=== PATIENT | female | born 2005 | race Two or more races ===

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

== ENCOUNTER 2025-05-07 10:32 | Emergency (ER) | payer MEDICAID, SELFPAY ==
[2025-05-07 10:33] VITALS: BMI 21.9
[2025-05-07 10:53] VITALS: BP 118/79; PULSE 80; RESP 17; TEMP 36.8; O2SAT 98; BMI 19.6
--- NOTE | 2025-05-07 11:18 | PD.EDRME ---
Rapid Medical Screening Exam E Arrival date/time: 05/07/25 10:32 This is a 20-year-old female that comes into the emergency room with complaints of pelvic pain. Patient denies vaginal bleeding. Patient states that she is approximately 8 weeks . Patient reports that her ex-boyfriend recently told her that he tested positive for chlamydia. Patient wants to be treated for this. Patient has not seen CHIEF BUSINESS DEVELOPMENT OFFICER. I have greeted and performed a focused initial assessment of this patient. Initial appropriate labs ordered at this time. A comprehensive ED assessment and evaluation of the patient and analysis of all test and completion of medical decision making process will be conducted by additional ED provider. Chief Complaint: Hip Injury/Pain Time Seen by Provider: 05/07/25 10:34 Vital signs: Vital Signs Temperature 98.3 F 05/07/25 10:53 Pulse Rate 80 05/07/25 10:53 Respiratory Rate 17 05/07/25 10:53 Blood Pressure 118/79 05/07/25 10:53 Pulse Oximetry (%) 98 05/07/25 10:53 Oxygen Delivery Method Room Air 05/07/25 10:53
--- NOTE | 2025-05-07 11:19 | XR_ITS ---
Examination: OB Transvaginal ultrasound of the pelvis, complete Technique: Transvaginal sonographic images pelvis performed using valdes scale imaging Exam date and time: May 07, 2025, 1138 hrs. Indications: History given pelvic pain today Findings: Uterus 8.8 cm, CRL 1.9 cm corresponds to 8 weeks 3 days gestational age Cardiac motion 171 BPM. Right ovary 2.4 cm arterial flow Left ovary 2.5 cm arterial flow Minimal fluid in the left adnexal region Impression: Viable intrauterine gestation 8 weeks 3 days.
[2025-05-07 12:02] LABS: Collection Type, Urine Voided
[2025-05-07 12:04] LABS: Basophils # (Auto) 0.1 Thou/mm3 (0.0-0.2); Basophils % (Auto) 1 % (0-2.5); Eosinophils # (Auto) 0.0 Thou/mm3 (0.0-0.5); Eosinophils % (Auto) 0 % (0-10); Hematocrit 40.1 % (36.0-46.0); Hemoglobin 13.9 g/dL (12.0-16.0); Immature Granulocytes Auto 0.03 Thou/mm3 (0.00-0.00); Lymphocytes # (Auto) 1.3 Thou/mm3 (1.0-4.8); Lymphocytes % (Auto) 13 % (10-50); Mean Corpuscular HGB Conc 34.7 g/dl (31.0-37.0); Mean Corpuscular Hemoglobin 28.5 pg (25.0-35.0); Mean Corpuscular Volume 82 fL (80-100); Monocytes # (Auto) 0.4 Thou/mm3 (0.0-0.8); Monocytes % (Auto) 4 % (0-12); Neutrophils # (Auto) 7.9 Thou/mm3 (1.8-7.7); Neutrophils % (Auto) 81 % (37-80); Nucleated Red Blood Cell # 0.00 Thou/mm3 (0.00-0.00); Nucleated Red Blood Cell % 0 /100 WBC (0); Platelet Count 285 Thou/mm3 (140-440); RDW Standard Deviation 38.5 fL (36.4-46.3); Red Blood Count 4.87 Miln/mm3 (4.00-5.20); White Blood Count 9.7 Thou/mm3 (4.5-11.0)
[2025-05-07 12:35] LABS: Amorphous Crystals,Urine Present (Absent); Bilirubin,Urine Negative (Negative); Blood,Urine Negative (Negative); Color,Urine Lt-Yellow (Lt Yel-Yel); Culture Indicated,Urine Not Indicated; Glucose, Urine Negative (Negative); Ketones,Urine Negative (Negative); Leukocyte Esterase,Urine Negative (Negative); Nitrite,Urine Negative (Negative); PH,Urine 8.0 (5.0-7.0); Protein,Urine Negative (Neg - Trace); RBC,Urine 1 /hpf (0-3); Specific Gravity,Urine 1.014 (1.001-1.035); Squamous Epithelial Cell,Urine 4 /hpf (0-5); Urobilinogen,Urine Negative mg/dL (0.0-1.0); WBC,Urine 1 /hpf (0-5)
[2025-05-07 12:37] LABS: Clarity,Urine Hazy (Clear/Hazy)
[2025-05-07 12:37] LABS: Alanine Aminotransferase 16 U/L (10-49); Albumin, Serum 5.1 gm/dL (3.5-5.0); Albumin/Globulin Ratio 1.8 (1.2-2.2); Alkaline Phosphatase 64 U/L (46-116); Anion Gap 13 (7-16); Aspartate Amino Transferase 19 U/L (0-34); BUN/Creatinine Ratio 7 Ratio (12-20); Beta HCG,Quantitative 153256 mIU/mL (<5.0); Bilirubin,Total 0.4 mg/dL (0.3-1.2); Blood Urea Nitrogen < 5 mg/dL (9-23); Calcium 10.1 mg/dL (8.3-10.6); Calcium (Corrected) 10.1 mg/dL (8.5-10.1); Carbon Dioxide 22.4 mMol/L (20.0-31.0); Chloride 107 mMol/L (98-107); Creatinine (Component) 0.7 mg/dL (0.6-1.3); Estimated Creatinine Clearance 115.0 mL/min (>60); Globulin 2.9 gm/dL (2.3-3.5); Glucose 90 mg/dL (74-106); Osmolality,Calculated 280 (275-295); Potassium 4.3 mMol/L (3.4-5.1); Sodium 142 mMol/L (136-145); Total Protein 8.0 gm/dL (5.7-8.2); eGFR > 60 See Note
--- NOTE | 2025-05-07 14:39 | EDNOTE_ITS ---
ED Female Urogenital RME/HPI General Chief complaint: Hip Injury/Pain Stated complaint: BILAT. PELVIC PAIN X1 DAY Time Seen by Provider: 05/07/25 10:34 Arrival date/time: 05/07/25 10:32 RME / HPI RME / HPI Narrative: 20-year-old female that comes into the emergency room with complaints of pelvic pain. Patient denies vaginal bleeding. Patient states that she is approximately 8 weeks . Patient reports that her ex-boyfriend recently 2 weeks ago told her that he tested positive for chlamydia. Patient wants to be treated for this. Patient has not seen FULFILLMENT ASSOCIATE. Patient broke up with her ex- boyfriend last March. Denies any dysuria denies any bleeding Related Data Allergies Allergy/AdvReac Type Severity Reaction Status Date / Time No Known Allergies Allergy Verified 05/07/25 10:36 Review of Systems Review of Systems Narrative Review of Systems: Review of system reviewed and within normal limits except mentioned in HPI ED Exam Narrative Physical exam: VITAL SIGNS: Reviewed. GENERAL APPEARANCE: Alert and interactive, follows commands, no acute distress, HEAD AND FACE: Non-traumatic. ENT: PERRL, pink conjunctivitis, eyelid no trauma, Mucous membrane moist. NECK: Supple, nontender, no nuchal rigidity. CHEST: No tenderness, no crepitus, no paradoxical movement, no retractions. LUNGS: Clear, well ventilated, symmetric, no rales, no wheezing, no ronchi, no stridor, good breath sounds bilaterally. HEART: Regular rate, regular rhythm, no murmur, no gallops. ABDOMEN: Soft, positive bowel sounds, nondistended, no guarding, nontender, no rebound, no masses, RECTAL: Deferred. GENITAL: Deferred. NEUROLOGICAL: Gross motor function intact sensory function intact, Appropriate for age. MUSCULOSKELETAL: low back nontender, full range of motion. EXTREMITIES: Nontender, full range of motion. SKIN: Color pink, dry, no rash, no lacerations, no abrasions, no contusions. LYMPHATICS: Deferred. Course Quality Measures none Orders Category Date Time Status US OB transvaginal Stat Exams 05/07/25 11:19 Taken Beta HCG,Quantitative Stat Lab 05/07/25 11:25 Completed CBC Stat Lab 05/07/25 11:25 Completed Comprehensive Metabolic Panel Stat Lab 05/07/25 11:25 Completed Urinalysis, C/S if Indicated Stat Lab 05/07/25 11:46 Completed Vital Signs Vital signs: Vital Signs Temperature 98.3 F 05/07/25 10:53 Pulse Rate 80 05/07/25 10:53 Respiratory Rate 17 05/07/25 10:53 Blood Pressure 118/79 05/07/25 10:53 Pulse Oximetry (%) 98 05/07/25 10:53 Oxygen Delivery Method Room Air 05/07/25 10:53 Urogenital - Female MDM Narrative MDM Narrative:: 20-year-old female that comes into the emergency room with complaints of pelvic pain. Patient denies vaginal bleeding. Patient states that she is approximately 8 weeks . Patient reports that her ex-boyfriend recently 2 weeks ago told her that he tested positive for chlamydia. Patient wants to be treated for this. Patient has not seen FULFILLMENT ASSOCIATE. Patient broke up with her ex- boyfriend last March. Denies any dysuria denies any bleeding Patient's workup today all came back unremarkable. Ultrasound of the showed single live intrauterine gestation about 8 weeks and 2 days old no abnormality noted. Urinalysis no sign of UTI Advised her to follow-up closely with FULFILLMENT ASSOCIATE or return to emergency room for sign of UTI like dysuria frequency or abnormal vaginal discharges. Patient data External records reviewed:: None Clinical information provided by:: patient and family Social determinants that could affect healthcare access:: none Patient has the following chronic illnesses:: None How is presenting disease/condition affected by chronic disease/condition?: no chronic disease Evaluation data The following diagnostics were reviewed and interpreted by me:: lab results and radiology exam(s) Lab and/or radiology exams considered but not ordered:: None Interpretation Summary: See results [facility] Medications / Prescriptions Medications or Prescriptions considered but not ordered:: None Medication administrations:: None Consultations Consultation(s) initiated? (list below): No Diagnosis Urogenital Female Differential Diagnosis: other (Pelvic pain, , UTI,) Most likely diagnosis given after review of the tests above:: Pelvic pain, 8 weeks Admission Indicated Admission indicated?: not indicated Admission Request Was there a request for admission?: No Disposition Plan Disposition Plan: Discharge Discharge Attestation Discharge Attestation: The patient and all family members were given an opportunity to ask questions and understood the discharge instructions. Discharge instructions specifically effects, indications for sooner follow up or return to the emergency department, and the expected course of current diagnosis. Patient condition: Stable Discharge Plan Plan Patient Disposition: HOME (Self Care) Discharge Disposition comment: Stable Prescriptions/Referrals Referrals: No Primary/Family,Physician [Primary Care Provider] - In 1 week Problem List Clinical Impression: Pelvic pain affecting Patient/Caregiver Discharge Instructions Discharge Activity: activity as tolerated Education Materials: Round Ligament Pain Additional Instructions: Thank you for the opportunity for serving you today. You are stable for discharged . You are advised to: Follow-up with your PCP in 1 to 2 days Return to ED for worsening of symptoms Increase oral fluids Take [id number] Tylenol as needed for pain Print Language: Palestinian Stand Alone Forms: Melinda Award Info., Patient Portal Info Letter GENEVA/LAMONTE Supervising Physician GENEVA/LAMONTE Supervising Physician: MD María
== END 2025-05-07 15:25 | disposition home or self-care (01) ==
PROVIDERS: Nurse Practitioner Family; Emergency Provider Emergency Medicine
DX: O99.891 Other specified diseases and conditions complicating pregnancy (principal); R10.20 Pelvic and perineal pain unspecified side; Z3A.08 8 weeks gestation of pregnancy
CPT/HCPCS: 36415; 76817; 80053; 81001; 84702; 85025; 99283

== ENCOUNTER 2025-06-03 02:42 | Emergency (ER) | payer MEDICAID, SELFPAY ==
[2025-06-03 02:44] VITALS: BMI 22.1
[2025-06-03 02:58] VITALS: BP 115/77; PULSE 86; RESP 19; TEMP 37.2; O2SAT 98
--- NOTE | 2025-06-03 03:12 | PD.EDBACK ---
ED Back Injury Pain RME/HPI General Chief Complaint: Back Pain/Injury Stated Complaint: LEFT LOWER BACK PAIN, 12WKS Time Seen by Provider: 06/03/25 03:05 Arrival date/time: 06/03/25 02:42 20F with no significant PMH presents to ED with several days of intermittent L lower back pain that is worse with movement. Patient is 12 weeks . Patient denies fall/trauma, ab pain, vaginal bleeding, and dysuria/hematuria. Limitations: no limitations Related Data Allergies Allergy/AdvReac Type Severity Reaction Status Date / Time No Known Allergies Allergy Verified 06/03/25 02:44 Review of Systems Review of Systems Systems Reviewed: All systems reviewed, normal except as documented Musculoskeletal Musculoskeletal: Reports as per HPI and Reports back pain Past Medical History Past Medical History CARDIAC: Negative Congestive Heart Failure RESPIRATORY: Negative Chronic Obstructive Pulmonary Disease (COPD) GENITOURINARY: Negative Renal Disease ENDOCRINE: Negative Diabetes Mellitus Type 1 or Diabetes Mellitus Type 2 Social History SMOKING STATUS: Never smoker ED Exam General Limitations: Present no limitations General appearance: Present alert and in no apparent distress Head Head exam: Present atraumatic Neck Neck exam: Present normal inspection, full ROM and trachea midline Chest Chest inspection: Present normal inspection and symmetric chest wall rise Back Exam Back exam: Present normal inspection and full ROM Neurological Exam Neurological exam: Present alert and oriented X3 Psychiatric Psychiatric exam: Present normal affect and normal mood Skin Skin exam: Present warm, dry, intact and normal color Course Quality Measures none Orders Category Date Time Status Acetaminophen Tab [Tylenol Tab] Med 06/03/25 03:06 Discontinued 650 mg PO X1 ONE Vital Signs Vital signs: Vital Signs Temperature 98.9 F 06/03/25 02:58 Pulse Rate 86 06/03/25 02:58 Respiratory Rate 19 06/03/25 02:58 Blood Pressure 115/77 06/03/25 02:58 Pulse Oximetry (%) 98 06/03/25 02:58 Oxygen Delivery Method Room Air 06/03/25 02:58 O2 at 98% on RA and WNLs Back Pain / Injury MDM Narrative MDM Narrative:: 20F with no significant PMH presents to ED with several days of intermittent L lower back pain that is worse with movement. Patient is 12 weeks . Patient denies fall/trauma, ab pain, vaginal bleeding, and dysuria/hematuria. Physical exam reveals no midline back tenderness. ROM and gait intact. Patient is afebrile, calm, and alert. Meds and nurses' association counselor given. Patient data External records reviewed:: [facility] previous records Clinical information provided by:: patient Social determinants that could affect healthcare access:: none Patient has the following chronic illnesses:: none How is presenting disease/condition affected by chronic disease/condition?: no chronic disease Evaluation data The following diagnostics were reviewed and interpreted by me:: other (specify) (none) Lab and/or radiology exams considered but not ordered:: not ordered Interpretation Summary: n/a Medications / Prescriptions Medications or Prescriptions considered but not ordered:: ordered Medication administrations:: Medication Administration History Discontinued Medications Acetaminophen (Acetaminophen 325 Mg Tablet) 650 mg PO X1 ONE Stop: 06/03/25 03:07 above Consultations Consultation(s) initiated? (list below): No Diagnosis Differential diagnosis back pain/injury: lumbar radiculopathy, sciatica, strain of lumbar region, renal colic, pyelonephritis, thoracic back pain, AAA and discitis Most likely diagnosis given after review of the tests above:: low back pain Admission Indicated Admission indicated?: not indicated Admission Request Was there a request for admission?: No Disposition Plan Disposition Plan: Discharge Discharge Attestation Discharge Attestation: The patient and all family members were given an opportunity to ask questions and understood the discharge instructions. Discharge instructions specifically effects, indications for sooner follow up or return to the emergency department, and the expected course of current diagnosis. Patient condition: Stable Discharge Plan Plan Patient Disposition: HOME (Self Care) Discharge Disposition comment: Stable Problem List Clinical Impression: Low back pain Patient/Caregiver Discharge Instructions Education Materials: ED Back Pain (Acute or Chronic) Additional Instructions: Please follow-up with PCP within 24-48 hours and return immediately if symptoms worsen. If problem persists, recommend outpatient PT and/or MRI follow-up. In the meantime, rest, use ice/heat, and/or compression. Print Language: Hong Konger Stand Alone Forms: Patient Portal Info Letter GENEVA/LAMONTE Supervising Physician GENEVA/LAMONTE Supervising Physician: Dr. Matthews
[2025-06-03] MEDS: ACETAMINOPHEN 325 MG TABLET 650 MG PO (03:20)
== END 2025-06-03 03:25 | disposition home or self-care (01) ==
LOC: SERX 03:29
PROVIDERS: Emergency Provider Emergency Medicine; PCP Physician Assistant
DX: O9A.211 Injury, poisoning and certain other consequences of external causes complicating pregnancy, first trimester (principal); Z3A.12 12 weeks gestation of pregnancy
CPT/HCPCS: 99281; A9270